=== PATIENT | male | born 1955 | race Caucasian/White ===

== ENCOUNTER 2017-03-01 12:26 | Emergency (ER) | payer OTHER ==
[~2017-03-01] VITALS: Ht 190.5 cm; Wt 110.0 kg
[~2017-03-01 12:26] MED LIST: CARI250T PO; CLOP75TA52 PO; LISI-167 PO; PRAV40TA2 PO
[2017-03-01 13:30] LABS: HEMATOCRIT 46.4 % (39.2-51.8); HEMOGLOBIN 15.8 g/dL (13.7-18.0); WHITE BLOOD COUNT 7.5 x10^3/uL (3.4-10)
[2017-03-01] MEDS ORDERED: MECLIZINE CHEWABLE 25 MG TAB PO ONE (13:30)
[2017-03-01] MEDS ORDERED: SODIUM CHLORIDE FLUSH 10ML SYR IVF ONE (13:30)
[2017-03-01] MEDS ORDERED: SODIUM CHLORIDE 0.9% 1,000ML IVBOLUS ONE (13:30)
[2017-03-01] MEDS ORDERED: METHOCARBAMOL 750 MG TABLET PO ONE (13:30)
[2017-03-01 13:40] LABS: ASPARTATE AMINO TRANSFERASE 22 U/L (15-37); BLOOD UREA NITROGEN 19 mg/dL (7-18)
[2017-03-01] MEDS ORDERED: METHOCARBAMOL 750 MG TABLET ONE (13:44)
[2017-03-01] MEDS ORDERED: MECLIZINE CHEWABLE 25 MG TAB ONE (13:44)
[2017-03-01 13:45] LABS: IS PT STATUS REG ER OR PRE ER? YES
[2017-03-01] MEDS ORDERED: OMNIPAQUE 350 MG/ML, 100ML BOTTLE ONE (15:33)
[2017-03-01] MEDS ORDERED: HYDROcodone/APAP 10/325 MG TABLET ONE (16:19)
[2017-03-01] MEDS ORDERED: HYDROcodone/APAP 10/325 MG TABLET PO PRN (16:30)
[2017-03-01 16:52] VITALS: BP 110/68
[2017-03-02] MEDS ORDERED: METF500T4 PO (08:49)
[2017-03-02] MEDS ORDERED: SILD20TA PO (08:50)
[2017-03-02] MEDS ORDERED: POTA99TA2 PO (08:51)
[2017-03-02] MEDS ORDERED: METO-93 PO (08:52)
[2017-03-02] MEDS ORDERED: PRAV80TA2 PO (08:53)
[2017-03-02] MEDS ORDERED: CARI350T14 PO (08:53)
[2017-03-02] MEDS ORDERED: GABA300C10 PO (08:54)
[2017-03-02] MEDS ORDERED: CYAN100014 PO (08:56)
[2017-03-02] MEDS ORDERED: FLUT1DIS3 INH (08:57)
[2017-03-02] MEDS ORDERED: ALBU18HF IH (08:58)
[2017-03-02] MEDS ORDERED: IPRA4AER INH (08:59)
[2017-03-02] MEDS ORDERED: HYDR-882 PO (09:06)
== END 2017-03-01 16:55 | disposition home or self-care (01) ==
LOC: ED 16:08
DX: M54.5 Low back pain (principal); I10 Essential (primary) hypertension; E11.9 Type 2 diabetes mellitus without complications
CPT/HCPCS: 36415; 71010; 71275; 72131; 80053; 83880; 84484; 85025; 85610; 85730; 93005; 96360; 99285; J7030; Q9967

== ENCOUNTER 2017-03-02 06:09 | Inpatient (IN) | payer OTHER ==
[~2017-03-02] VITALS: Ht 190.5 cm; Wt 100.6 kg
[2017-03-02] MEDS ORDERED: SODIUM CHLORIDE FLUSH 10ML SYR IVF ONE (06:30)
[2017-03-02] MEDS ORDERED: SODIUM CHLORIDE 0.9% 1,000ML IVBOLUS ONE (06:30)
[2017-03-02 07:04] LABS: BASOPHILS # (AUTO) 0.03 x10^3/uL (0-0.1); BASOPHILS % (AUTO) 0 % (0-1); EOSINOPHILS % (AUTO) 0 % (1-7); LYMPHOCYTES # (AUTO) 0.86 x10^3/uL (1-3.4); LYMPHOCYTES % (AUTO) 13 % (22-44); MD NO; MEAN CORPUSCULAR HEMOGLOBIN 30.9 pg (27.5-34.5); MEAN CORPUSCULAR HGB CONC 33.5 g/dL (33.2-36.2); MEAN CORPUSCULAR VOLUME 92.2 fL (81-97); MEAN PLATELET VOLUME 8.3 fL (7.4-10.4); MONOCYTES # (AUTO) 1.15 x10^3/uL (0.2-0.8); MONOCYTES % (AUTO) 17 % (2-9); NEUTROPHILS # (AUTO) 4.85 x10^3/uL (1.8-6.8); NEUTROPHILS % (AUTO) 70 % (42-75); PLATELET COUNT 163 x10^3/uL (130-400); RED BLOOD COUNT 5.06 x10^6/uL (4.38-5.82); RED CELL DISTRIBUTION WIDTH 15.1 % (9.4-14.8)
[2017-03-02 07:16] LABS: ALANINE AMINOTRANSFERASE 40 U/L (12-78); ALBUMIN 3.8 g/dL (3.4-5.0); ANION GAP 7 mmol/L (5-15); CALCIUM 8.8 mg/dL (8.5-10.1); CHLORIDE 107 mmol/L (98-107)
[2017-03-02 07:22] LABS: ALKALINE PHOSPHATASE 65 U/L (45-117); BILIRUBIN,TOTAL 0.5 mg/dL (0.2-1.0); CREATININE 1.15 mg/dL (0.7-1.3); TOTAL PROTEIN 8.1 g/dL (6.4-8.2); TROPONIN I < 0.015 ng/mL (0.000-0.045)
[2017-03-02 07:36] LABS: ACETAMINOPHEN < 2 mcg/mL (10-30); SALICYLATE LEVEL < 1.7 mg/dL (2.8-20.0)
[2017-03-02] MEDS ORDERED: METF500T4 PO (08:49)
[2017-03-02 08:50] LABS: AMPHETAMINE SCREEN, URINE Negative (Negative); BARBITURATE SCREEN, URINE Negative (Negative); BENZODIAZEPINE SCREEN, URINE Negative (Negative); CANNABINOID SCREEN, URINE Negative (Negative); COCAINE SCREEN, URINE Negative (Negative); METHADONE SCREEN, URINE Negative (Negative); OPIATE SCREEN, URINE Positive (Negative)
[2017-03-02] MEDS ORDERED: SILD20TA PO (08:50)
[2017-03-02] MEDS ORDERED: POTA99TA2 PO (08:51)
[2017-03-02] MEDS ORDERED: METO-93 PO (08:52)
[2017-03-02] MEDS ORDERED: PRAV80TA2 PO (08:53)
[2017-03-02] MEDS ORDERED: CARI350T14 PO (08:53)
[2017-03-02] MEDS ORDERED: GABA300C10 PO (08:54)
[2017-03-02] MEDS ORDERED: CYAN100014 PO (08:56)
[2017-03-02] MEDS ORDERED: FLUT1DIS3 INH (08:57)
[2017-03-02] MEDS ORDERED: ALBU18HF IH (08:58)
[2017-03-02] MEDS ORDERED: IPRA4AER INH (08:59)
[2017-03-02] MEDS ORDERED: HYDR-882 PO (09:06)
[2017-03-02 09:07] LABS: MICROSCOPIC INDICATED
[2017-03-02 09:08] LABS: CULTURE INDICATED? NO
[2017-03-02] MEDS ORDERED: ACETAMINOPHEN 325 MG TABLET PO PRN (10:30)
[2017-03-02] MEDS ORDERED: ONDANSETRON ODT 4 MG PO PRN (10:30)
[2017-03-02 12:27] LABS: FREE T4 (FREE THYROXINE) 1.42 ng/dL (0.76-1.46); TROPONIN I 0.016 ng/mL (0.000-0.045)
[2017-03-02 13:41] VITALS: BP 148/95
[2017-03-02] MEDS: ENOXAPARIN 40 MG/0.4 ML SQ SCH (16:23)
[2017-03-02] MEDS: SODIUM CHLORIDE 0.9% 1,000 ML IV SCH (16:23)
[2017-03-02] MEDS ORDERED: HYDROmorphone 1 MG/ML, 1ML IV ONE (16:30)
[2017-03-02] MEDS ORDERED: HYDROmorphone 1 MG/ML, 1ML IV PRN (18:00)
[2017-03-02 19:23] VITALS: BP 134/87
[2017-03-02 19:32] LABS: TROPONIN I 0.017 ng/mL (0.000-0.045)
[2017-03-02] MEDS: ACETAMINOPHEN 650 MG SUPP PR PRN (20:24)
[2017-03-02] MEDS: METOPROLOL SUCCINATE 50 MG TAB.ER.24H PO SCH (20:34)
[2017-03-02] MEDS: ATORVASTATIN 20 MG TABLET PO SCH (20:34)
[2017-03-03] MEDS: ONDANSETRON 2MG/ML, 2ML IVPush PRN ×3 (01:58→20:34)
[2017-03-03 02:10] VITALS: BP 141/92
[2017-03-03] MEDS: SODIUM CHLORIDE 0.9% 1,000 ML IV SCH ×2 (03:18→14:16)
[2017-03-03 06:08] LABS: BASOPHILS # (AUTO) 0.01 x10^3/uL (0-0.1); BASOPHILS % (AUTO) 0 % (0-1); EOSINOPHILS % (AUTO) 0 % (1-7); LYMPHOCYTES # (AUTO) 1.16 x10^3/uL (1-3.4); LYMPHOCYTES % (AUTO) 13 % (22-44); MD NO; MEAN CORPUSCULAR VOLUME 93.8 fL (81-97); MEAN PLATELET VOLUME 8.6 fL (7.4-10.4); MONOCYTES # (AUTO) 1.07 x10^3/uL (0.2-0.8); MONOCYTES % (AUTO) 12 % (2-9); NEUTROPHILS # (AUTO) 6.92 x10^3/uL (1.8-6.8); NEUTROPHILS % (AUTO) 75 % (42-75); PLATELET COUNT 131 x10^3/uL (130-400); RED CELL DISTRIBUTION WIDTH 14.8 % (9.4-14.8)
[2017-03-03 06:51] VITALS: BP 150/83
[2017-03-03 07:13] LABS: ALANINE AMINOTRANSFERASE 42 U/L (12-78); ALBUMIN 3.4 g/dL (3.4-5.0); ANION GAP 10 mmol/L (5-15); CALCIUM 8.7 mg/dL (8.5-10.1); CHLORIDE 111 mmol/L (98-107); CREATININE 0.85 mg/dL (0.7-1.3)
[2017-03-03 07:16] LABS: ALKALINE PHOSPHATASE 65 U/L (45-117); BILIRUBIN,TOTAL 0.6 mg/dL (0.2-1.0); CHOL/HDL RATIO 3.2; CHOLESTEROL, TOTAL 143 mg/dL (140-239); HDL CHOL % 31 % (26-37); HDL CHOLESTEROL (DIRECT) 45 mg/dL (40-60); LDL CHOLESTEROL,CALCULATED 81 mg/dL (54-169); LDL/HDL RATIO 1.8 (0.5-3.0); TOTAL PROTEIN 7.4 g/dL (6.4-8.2); TRIGLYCERIDES 87 mg/dL (50-200); VLDL CHOLESTEROL 17 mg/dL (0-25)
[2017-03-03] MEDS: LISINOPRIL 10 MG TABLET PO SCH (09:00)
[2017-03-03 09:01] LABS: CLOSTRIDIUM DIFFICILE ANTIGEN NEGATIVE; CLOSTRIDIUM DIFFICILE TOXIN NEGATIVE (Negative)
[2017-03-03] MEDS: CLOPIDOGREL 75 MG TABLET PO SCH (09:47)
[2017-03-03] MEDS ORDERED: MAALOX/HYOSCYAMINE/LIDOCAINE 45 ML BTL PO ONE (10:30)
[2017-03-03 13:04] VITALS: BP 158/89
[2017-03-03] MEDS: ENOXAPARIN 40 MG/0.4 ML SQ SCH (14:04)
[2017-03-03] MEDS: FLUTICASONE/VILANTEROL 100-25MCG/INH INH SCH (14:04)
[2017-03-03] MEDS: ACETAMINOPHEN 650 MG SUPP PR PRN (16:51)
[2017-03-03 20:23] VITALS: BP 123/64
[2017-03-03] MEDS: GUAIFENESIN ER 600 MG TABLET PO SCH (20:35)
[2017-03-03] MEDS: ATORVASTATIN 20 MG TABLET PO SCH (20:35)
[2017-03-03] MEDS: METOPROLOL SUCCINATE 50 MG TAB.ER.24H PO SCH (20:36)
[2017-03-04 02:36] VITALS: BP 97/66
[2017-03-04] MEDS: SODIUM CHLORIDE 0.9% 1,000 ML IV SCH (05:40)
[2017-03-04 06:02] LABS: BASOPHILS # (AUTO) 0.02 x10^3/uL (0-0.1); BASOPHILS % (AUTO) 0 % (0-1); EOSINOPHILS % (AUTO) 0 % (1-7); LYMPHOCYTES # (AUTO) 1.26 x10^3/uL (1-3.4); LYMPHOCYTES % (AUTO) 16 % (22-44); MD NO; MEAN CORPUSCULAR HEMOGLOBIN 31.1 pg (27.5-34.5); MEAN CORPUSCULAR HGB CONC 33.3 g/dL (33.2-36.2); MEAN CORPUSCULAR VOLUME 93.2 fL (81-97); MEAN PLATELET VOLUME 8.9 fL (7.4-10.4); MONOCYTES % (AUTO) 12 % (2-9); NEUTROPHILS # (AUTO) 5.67 x10^3/uL (1.8-6.8); NEUTROPHILS % (AUTO) 72 % (42-75); PLATELET COUNT 166 x10^3/uL (130-400); RED BLOOD COUNT 4.67 x10^6/uL (4.38-5.82); RED CELL DISTRIBUTION WIDTH 14.2 % (9.4-14.8)
[2017-03-04 06:07] LABS: ALBUMIN 3.1 g/dL (3.4-5.0); ANION GAP 7 mmol/L (5-15); CALCIUM 8.6 mg/dL (8.5-10.1); CHLORIDE 112 mmol/L (98-107)
[2017-03-04 06:10] LABS: ALANINE AMINOTRANSFERASE 35 U/L (12-78); ALKALINE PHOSPHATASE 54 U/L (45-117); CREATININE 0.71 mg/dL (0.7-1.3)
[2017-03-04 07:58] VITALS: BP 111/73
[2017-03-04] MEDS ORDERED: MAALOX/HYOSCYAMINE/LIDOCAINE 45 ML BTL PO ONE (09:00)
[2017-03-04] MEDS: LISINOPRIL 10 MG TABLET PO SCH (09:12)
[2017-03-04] MEDS: GUAIFENESIN ER 600 MG TABLET PO SCH ×2 (09:12→21:17)
[2017-03-04] MEDS: D5%-0.45NACL+KCL 20MEQ 1,000 ML IV SCH (09:12)
[2017-03-04] MEDS: CLOPIDOGREL 75 MG TABLET PO SCH (09:12)
[2017-03-04] MEDS: FLUTICASONE/VILANTEROL 100-25MCG/INH INH SCH (09:13)
[2017-03-04 14:37] VITALS: BP 124/75
[2017-03-04] MEDS: ENOXAPARIN 40 MG/0.4 ML SQ SCH (14:42)
[2017-03-04] MEDS: HYDROcodone/APAP 5/325 TABLET PO PRN (17:32)
[2017-03-04 19:19] VITALS: BP 130/75
[2017-03-04] MEDS: ATORVASTATIN 20 MG TABLET PO SCH (21:17)
[2017-03-04] MEDS: METOPROLOL SUCCINATE 50 MG TAB.ER.24H PO SCH (21:17)
[2017-03-05 01:44] VITALS: BP 132/82
[2017-03-05] MEDS: D5%-0.45NACL+KCL 20MEQ 1,000 ML IV SCH ×2 (02:20→15:49)
[2017-03-05 05:06] LABS: BASOPHILS # (AUTO) 0.02 x10^3/uL (0-0.1); BASOPHILS % (AUTO) 0 % (0-1); EOSINOPHILS # (AUTO) 0.03 x10^3/uL (0-0.4); EOSINOPHILS % (AUTO) 0 % (1-7); LYMPHOCYTES # (AUTO) 1.81 x10^3/uL (1-3.4); LYMPHOCYTES % (AUTO) 25 % (22-44); MD NO; MEAN CORPUSCULAR HEMOGLOBIN 30.8 pg (27.5-34.5); MEAN CORPUSCULAR HGB CONC 32.8 g/dL (33.2-36.2); MEAN PLATELET VOLUME 8.5 fL (7.4-10.4); MONOCYTES # (AUTO) 0.81 x10^3/uL (0.2-0.8); MONOCYTES % (AUTO) 11 % (2-9); NEUTROPHILS # (AUTO) 4.56 x10^3/uL (1.8-6.8); NEUTROPHILS % (AUTO) 63 % (42-75); PLATELET COUNT 161 x10^3/uL (130-400); RED BLOOD COUNT 4.89 x10^6/uL (4.38-5.82); RED CELL DISTRIBUTION WIDTH 14.6 % (9.4-14.8)
[2017-03-05 05:18] LABS: ANION GAP 4 mmol/L (5-15); CALCIUM 8.7 mg/dL (8.5-10.1); CHLORIDE 106 mmol/L (98-107)
[2017-03-05 05:21] LABS: ALANINE AMINOTRANSFERASE 39 U/L (12-78); ALKALINE PHOSPHATASE 53 U/L (45-117); BILIRUBIN,TOTAL 0.8 mg/dL (0.2-1.0); CREATININE 0.69 mg/dL (0.7-1.3); TOTAL PROTEIN 6.9 g/dL (6.4-8.2)
[2017-03-05 07:19] VITALS: BP 144/76
[2017-03-05] MEDS: CLOPIDOGREL 75 MG TABLET PO SCH (08:54)
[2017-03-05] MEDS: LISINOPRIL 10 MG TABLET PO SCH (08:54)
[2017-03-05] MEDS: FLUTICASONE/VILANTEROL 100-25MCG/INH INH SCH (08:54)
[2017-03-05] MEDS: ONDANSETRON 2MG/ML, 2ML IVPush PRN (08:54)
[2017-03-05] MEDS: GUAIFENESIN ER 600 MG TABLET PO SCH ×2 (08:54→21:04)
[2017-03-05] MEDS: HYDROcodone/APAP 5/325 TABLET PO PRN ×2 (08:58→21:04)
[2017-03-05 15:42] VITALS: BP 112/70
[2017-03-05] MEDS: ENOXAPARIN 40 MG/0.4 ML SQ SCH (15:49)
[2017-03-05 20:00] VITALS: BP 130/74
[2017-03-05] MEDS: ATORVASTATIN 20 MG TABLET PO SCH (21:04)
[2017-03-05] MEDS: METOPROLOL SUCCINATE 50 MG TAB.ER.24H PO SCH (21:04)
[2017-03-06 04:28] VITALS: BP 121/75
[2017-03-06] MEDS: D5%-0.45NACL+KCL 20MEQ 1,000 ML IV SCH (05:34)
[2017-03-06] MEDS: ONDANSETRON 2MG/ML, 2ML IVPush PRN ×2 (05:56→17:15)
[2017-03-06 06:48] VITALS: BP 97/55
[2017-03-06] MEDS: HYDROcodone/APAP 5/325 TABLET PO PRN ×2 (08:28→21:09)
[2017-03-06] MEDS: CLOPIDOGREL 75 MG TABLET PO SCH (08:28)
[2017-03-06] MEDS: GUAIFENESIN ER 600 MG TABLET PO SCH ×2 (08:28→21:09)
[2017-03-06] MEDS: FLUTICASONE/VILANTEROL 100-25MCG/INH INH SCH (08:28)
[2017-03-06] MEDS: LISINOPRIL 10 MG TABLET PO SCH (08:29)
[2017-03-06 15:32] VITALS: BP 115/75
[2017-03-06] MEDS: ENOXAPARIN 40 MG/0.4 ML SQ SCH (15:52)
[2017-03-06 19:36] VITALS: BP 114/81
[2017-03-06] MEDS: METOPROLOL SUCCINATE 50 MG TAB.ER.24H PO SCH (21:09)
[2017-03-06] MEDS: ATORVASTATIN 20 MG TABLET PO SCH (21:09)
[2017-03-07 02:50] VITALS: BP 115/72
[2017-03-07 07:52] VITALS: BP 122/81
[2017-03-07] MEDS: FLUTICASONE/VILANTEROL 100-25MCG/INH INH SCH (08:17)
[2017-03-07] MEDS: CLOPIDOGREL 75 MG TABLET PO SCH (08:17)
[2017-03-07] MEDS: GUAIFENESIN ER 600 MG TABLET PO SCH (08:17)
[2017-03-07] MEDS: HYDROcodone/APAP 5/325 TABLET PO PRN (08:21)
[2017-03-07] MEDS ORDERED: LISINOPRIL 10 MG TABLET PO SCH (09:00)
[2017-03-07] MEDS: ONDANSETRON 2MG/ML, 2ML IVPush PRN (12:48)
[2017-03-07 15:15] VITALS: BP 104/68
[2017-03-07] MEDS: ENOXAPARIN 40 MG/0.4 ML SQ SCH (15:23)
[2017-03-07] MEDS ORDERED: FLU VACC QS2017-18 (36MOS+) UP/PF 0.5 ML IM-VACC ONE (16:00)
== END 2017-03-07 17:40 | DRG 70 ==
LOC: ED 06:28 → EDIP 08:58 → 4WST 14:11
PROVIDERS: ADMIT Family Medicine; ATTEND Family Medicine
DX: G93.40 Encephalopathy, unspecified (principal); J96.21 Acute and chronic respiratory failure with hypoxia; E11.42 Type 2 diabetes mellitus with diabetic polyneuropathy; F11.20 Opioid dependence, uncomplicated; Z99.81 Dependence on supplemental oxygen; R13.10 Dysphagia, unspecified; J98.11 Atelectasis; R27.0 Ataxia, unspecified; W18.39XA Other fall on same level, initial encounter; I11.9 Hypertensive heart disease without heart failure; E78.5 Hyperlipidemia, unspecified; G89.29 Other chronic pain; I25.10 Atherosclerotic heart disease of native coronary artery without angina pectoris; M54.9 Dorsalgia, unspecified; G83.9 Paralytic syndrome, unspecified; J44.9 Chronic obstructive pulmonary disease, unspecified; K21.9 Gastro-esophageal reflux disease without esophagitis; Z79.84 Long term (current) use of oral hypoglycemic drugs; Z86.73 Personal history of transient ischemic attack (TIA), and cerebral infarction without residual deficits; Z95.5 Presence of coronary angioplasty implant and graft; Y93.89 Activity, other specified; Y92.098 Other place in other non-institutional residence as the place of occurrence of the external cause; Y99.8 Other external cause status; Z88.5 Allergy status to narcotic agent; Z87.891 Personal history of nicotine dependence
CPT/HCPCS: 36415; 70450; 70551; 71010; 71250; 74230; 80053; 80061; 80307; 80329; 81001; 82140; 83735; 84100; 84439; 84443; 84484; 85025; 87040; 87070; 87205; 87324; 90686; 93005; 93306; 93880; 96360; 96361; J1650; J2405; Q0162; G0479; G0480; J3480; J7030

== ENCOUNTER 2017-07-28 21:58 | Emergency (ER) | payer OTHER ==
[~2017-07-28] VITALS: Ht 190.5 cm; Wt 105.0 kg
[~2017-07-28 21:58] MED LIST changes: +ALBU18HF IH; +CARI350T14 PO; +CYAN100014 PO; +FLUT1DIS3 INH; +GABA300C10 PO; +HYDR-882 PO; +IPRA4AER INH; +METF500T4 PO; +METO-93 PO; +POTA99TA2 PO; +PRAV80TA2 PO; +SILD20TA PO
[2017-07-29 00:59] VITALS: BP 111/67
== END 2017-07-29 01:28 | disposition home or self-care (01) ==
LOC: ED 23:59
DX: S70.11XA Contusion of right thigh, initial encounter (principal); I10 Essential (primary) hypertension; K21.9 Gastro-esophageal reflux disease without esophagitis; J44.9 Chronic obstructive pulmonary disease, unspecified; I25.10 Atherosclerotic heart disease of native coronary artery without angina pectoris; E11.9 Type 2 diabetes mellitus without complications; Z87.891 Personal history of nicotine dependence; W01.0XXA Fall on same level from slipping, tripping and stumbling without subsequent striking against object, initial encounter; Y93.89 Activity, other specified; Y92.89 Other specified places as the place of occurrence of the external cause; Y99.8 Other external cause status
CPT/HCPCS: 99284

== ENCOUNTER 2017-08-15 11:17 | Emergency (ER) | payer OTHER ==
[~2017-08-15] VITALS: Ht 190.5 cm; Wt 100.0 kg
[2017-08-15] MEDS ORDERED: SODIUM CHLORIDE FLUSH 10ML SYR IVF ONE (13:00)
[2017-08-15 13:09] LABS: BASOPHILS # (AUTO) 0.03 x10^3/uL (0-0.1); BASOPHILS % (AUTO) 0 % (0-1); EOSINOPHILS # (AUTO) 0.15 x10^3/uL (0-0.4); EOSINOPHILS % (AUTO) 2 % (1-7); LYMPHOCYTES # (AUTO) 2.46 x10^3/uL (1-3.4); LYMPHOCYTES % (AUTO) 25 % (22-44); MD NO; MEAN CORPUSCULAR HEMOGLOBIN 30.3 pg (27.5-34.5); MEAN CORPUSCULAR VOLUME 91.8 fL (81-97); MEAN PLATELET VOLUME 7.9 fL (7.4-10.4); MONOCYTES # (AUTO) 0.72 x10^3/uL (0.2-0.8); MONOCYTES % (AUTO) 7 % (2-9); NEUTROPHILS # (AUTO) 6.36 x10^3/uL (1.8-6.8); NEUTROPHILS % (AUTO) 66 % (42-75); PLATELET COUNT 295 x10^3/uL (130-400); RED BLOOD COUNT 4.82 x10^6/uL (4.38-5.82)
[2017-08-15 13:17] LABS: ANION GAP 8 mmol/L (5-15); CALCIUM 9.4 mg/dL (8.5-10.1); CHLORIDE 109 mmol/L (98-107); CREATININE 0.98 mg/dL (0.7-1.3)
[2017-08-15 14:07] VITALS: BP 122/76
[2017-08-15] MEDS ORDERED: GADOBUTROL 10 MMOL/10 ML PFS ONE (15:01)
[2017-08-15] MEDS ORDERED: HYDROmorphone 1 MG/ML, 1ML IVPush ONE (16:00)
[2017-08-15] MEDS ORDERED: ONDANSETRON ODT 4 MG PO ONE (16:00)
[2017-08-15] MEDS ORDERED: ONDANSETRON ODT 4 MG ONE (16:04)
[2017-08-15] MEDS ORDERED: HYDROmorphone 1 MG/ML, 1ML ONE (16:05)
== END 2017-08-15 17:05 | disposition home or self-care (01) ==
LOC: ED 14:56
DX: S32.810A Multiple fractures of pelvis with stable disruption of pelvic ring, initial encounter for closed fracture (principal); I10 Essential (primary) hypertension; I25.10 Atherosclerotic heart disease of native coronary artery without angina pectoris; J44.9 Chronic obstructive pulmonary disease, unspecified; K21.9 Gastro-esophageal reflux disease without esophagitis; Z86.73 Personal history of transient ischemic attack (TIA), and cerebral infarction without residual deficits; W19.XXXA Unspecified fall, initial encounter; Y93.89 Activity, other specified; Y99.9 Unspecified external cause status; Y92.009 Unspecified place in unspecified non-institutional (private) residence as the place of occurrence of the external cause
CPT/HCPCS: 36415; 72197; 80048; 82040; 85025; 96374; 99285; A9585; J1170; Q0162

== ENCOUNTER 2019-07-23 14:21 | Emergency (ER) | payer OTHER ==
[~2019-07-23] VITALS: Ht 190.5 cm; Wt 102.9 kg
[~2019-07-23 14:21] MED LIST changes: +HYDR-3653 PO; -HYDR-882 PO; +METF500T17 PO; -METF500T4 PO
[2019-07-23 14:23] VITALS: BP 123/43
[2019-07-23] MEDS ORDERED: DIPH,PERTUSS(ACELL),TET VAC/PF 0.5 ML IM-VACC ONE ×2 (15:00→15:55)
[2019-07-23] MEDS ORDERED: LIDOCAINE-MPF 1%, 5ML INFIL ONE (15:00)
--- NOTE | 2019-07-23 15:34 | NUR ---
EMERGENCY MEDICAL TECHNICIAN BASIC: PT AMBULATORY WITH STEADY GAIT TO ROOM.
[2019-07-23] MEDS ORDERED: LIDOCAINE 1%-EPI 1:100K, 20ML ONE (15:55)
[2019-07-23] MEDS ORDERED: LIDOCAINE-MPF 1%, 5ML ONE (15:57)
--- NOTE | 2019-07-23 16:13 | NUR ---
PT SITTING IN BED, ERP TO BEDSIDE TO SUTURE. AT BEDSIDE.
[2019-07-23] MEDS ORDERED: NEOSPORIN OINT. PKT 1 PACKET ONE (16:40)
== END 2019-07-23 17:07 | disposition home or self-care (01) ==
LOC: ED 16:34
DX: S61.215A Laceration without foreign body of left ring finger without damage to nail, initial encounter (principal); W26.8XXA Contact with other sharp object(s), not elsewhere classified, initial encounter; Y93.89 Activity, other specified; Y92.009 Unspecified place in unspecified non-institutional (private) residence as the place of occurrence of the external cause; Y99.8 Other external cause status
CPT/HCPCS: 12041; 90471; 90715; 99283